=== PATIENT | male | born 1955 | race Caucasian/White ===

== ENCOUNTER → 2017-03-19 | Outpatient (CLI) | payer OTHER | END | disposition home or self-care (01) | LOC: Rad HDHVI 07:59 | PROVIDERS: ATTEND Internal Medicine Cardiovascular Disease | DX: I48.0 Paroxysmal atrial fibrillation (principal); J44.9 Chronic obstructive pulmonary disease, unspecified | CPT/HCPCS: 93306 ==

== ENCOUNTER → 2017-03-21 | Outpatient (CLI) | payer OTHER ==
[~2017-03-21] VITALS: Ht 185.4 cm; Wt 88.5 kg
== END | disposition home or self-care (01) ==
LOC: Rad HDHVI 07:40
PROVIDERS: ATTEND Internal Medicine Cardiovascular Disease
DX: Z13.9 Encounter for screening, unspecified (principal); I10 Essential (primary) hypertension; J44.9 Chronic obstructive pulmonary disease, unspecified; E78.00 Pure hypercholesterolemia, unspecified; R00.2 Palpitations
CPT/HCPCS: 78452; 93017; 96374; A9500